=== PATIENT | male | born 1980 | race Caucasian/White ===

== ENCOUNTER 2022-02-02 09:25 | Emergency (ER) | payer SELFPAY ==
[~2022-02-02] VITALS: Ht 175 cm; Wt 95.0 kg
--- NOTE | 2022-02-02 09:43 | ED General ---
General Stated Complaint: LT LEG DVT History of Present Illness Date Seen by Provider: Feb 02, 2022 Time Seen by Provider: 09:43 Initial Comments 41-year-old male sent in by [facility] because he has a DVT. Patient has a known history of factor V Leiden and history of DVTs. Patient reports that he has been on Coumadin for 10 years. However about 3 weeks ago he was out of Coumadin for about a week. Few days ago he noticed some increasing pain in his left upper leg. They presented to [facility]. They ordered a ultrasound that was done this morning. Ultrasound this morning shows occlusive left thrombus in the external iliac, common femoral vein and femoral vein. Patient reports that when they checked his INR on Sunday it was 1.9. Patient is told nurse that he was sent in to the ER to get an IVC filter. Patient denies any shortness of breath. Allergies and Home Medications Allergies Coded Allergies: No Allergy Information Available (Unverified , 02/02/22) Patient Home Medication List Home Medication List Reviewed: Yes Enoxaparin Sodium (Lovenox) 100 Mg/Ml Syringe, 100 MG SQ BID Prescribed by: GALLO RAI on 02/02/22 1354 Tramadol HCl (Tramadol HCl) 50 Mg Tablet, 50 MG PO Q8H PRN for PAIN Prescribed by: GALLO RAI on 02/02/22 1411 Review of Systems Review of Systems Constitutional: no symptoms reported EENTM: no symptoms reported Respiratory: no symptoms reported Cardiovascular: no symptoms reported Gastrointestinal: no symptoms reported Genitourinary: no symptoms reported Musculoskeletal: see HPI Skin: no symptoms reported Psychiatric/Neurological: No Symptoms Reported Hematologic/Lymphatic: No Symptoms Reported Immunological/Allergic: no symptoms reported Physical Exam Vital Signs Vital Signs - First Documented 02/02/22 02/02/22 09:47 14:48 Temp 36.5 Pulse 81 Resp 16 B/P (MAP) 135/90 (105) Pulse Ox 99 O2 Delivery Room Air Capillary Refill : Height, Weight, BMI Height: '" Weight: lbs. oz. 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 Norm as Tested Skin: Normal Color, Warm/Dry Progress/Results/Core Measures Suspected Sepsis SIRS Temperature: Pulse: Respiratory Rate: Laboratory Tests 02/02/22 09:56: White Blood Count 12.1H Blood Pressure / Mean: Laboratory Tests 02/02/22 09:56: Creatinine 1.19, INR Comment 2.9H, Platelet Count 467H Results/Orders Lab Results Laboratory Tests Test 02/02/22 09:56 Range/Units White Blood Count 12.1 H 4.3-11.0 10^3/uL Red Blood Count 4.63 4.30-5.52 10^6/uL Hemoglobin 14.1 13.3-17.7 g/dL Hematocrit 42 40-54 % Mean Corpuscular Volume 91 80-99 fL Mean Corpuscular Hemoglobin 31 25-34 pg Mean Corpuscular Hemoglobin Concent 33 32-36 g/dL Red Cell Distribution Width 13.8 10.0-14.5 % Platelet Count 467 H 130-400 10^3/uL Mean Platelet Volume 9.5 9.0-12.2 fL Prothrombin Time 30.5 H 12.2-14.7 SEC INR Comment 2.9 H 0.8-1.4 Activated Partial Thromboplast Time 61 H 24-35 SEC Sodium Level 138 135-145 MMOL/L Potassium Level 4.1 3.6-5.0 MMOL/L Chloride Level 99 98-107 MMOL/L Carbon Dioxide Level 23 21-32 MMOL/L Anion Gap 16 H 5-14 MMOL/L Blood Urea Nitrogen 22 H 7-18 MG/DL Creatinine 1.19 0.60-1.30 MG/DL Estimat Glomerular Filtration Rate 79 BUN/Creatinine Ratio 18 Glucose Level 110 H 70-105 MG/DL Calcium Level 9.6 8.5-10.1 MG/DL My Orders Orders - GALLO RAI DO Basic Metabolic Panel (02/02/22 09:48) Cbc No Diff (02/02/22 09:48) Protime With Inr (02/02/22 09:48) Partial Thromboplastin Time (02/02/22 09:48) Ct Abdomen/Pelvis W (02/02/22 12:07) Iohexol Injection (Omnipaque 350 Mg/Ml 1 (02/02/22 12:15) Received Contrast (Hold Metformin- Contr (02/02/22 12:15) Ns (Ivpb) (Sodium Chloride 0.9% Ivpb Bag (02/02/22 12:15) Sodium Chloride Flush (Catheter Flush Sy (02/02/22 12:15) Enoxaparin Injection (Lovenox Injection) (02/02/22 14:00) Medications Given in ED Current Medications Medications Dose Ordered Sig/Keerthi Route Start Time Stop Time Status Last Admin Dose Admin Enoxaparin Sodium 90 mg ONCE ONCE SC 02/02/22 14:00 02/02/22 14:01 DC 02/02/22 14:07 90 MG Iohexol 100 ml ONCE ONCE IV 02/02/22 12:15 02/02/22 12:17 DC 02/02/22 12:58 80 ML Sodium Chloride 10 ml NEEDED PRN IV 02/02/22 12:15 02/02/22 14:48 DC 02/02/22 12:58 10 ML Sodium Chloride 100 ml ONCE ONCE IV 02/02/22 12:15 02/02/22 12:17 DC 02/02/22 12:57 80 ML Vital Signs/I&O 02/02/22 02/02/22 09:47 14:48 Temp 36.5 Pulse 81 75 Resp 16 16 B/P (MAP) 135/90 (105) 126/88 Pulse Ox 99 99 O2 Delivery Room Air Room Air Capillary Refill : Progress Note : Progress Note I reviewed DVT results. Discussed with Dr. Thomas, vascular surgery at [facility]. They asked us to obtain a delayed venous phase CT abdomen pelvis to mid thigh. They will then review it and set up an outpatient thrombectomy with patient. Patient has good distal pulses. No swelling of the leg. They also requested that we have him stop his Coumadin and start him on Lovenox twice daily weight-based. vascular dixie will contact them directly to set up an appointment. Patient was stable and discharged home. Patient is in agreement with plan and voices understanding. Diagnostic Imaging Diagonstic Imaging: CT Plain Films/CT/US/NM/MRI: abdomen, pelvis Comments Date of Exam:02/02/22 CT ABDOMEN/PELVIS W PROCEDURE: CT abdomen and pelvis with contrast. TECHNIQUE: Multiple contiguous axial images were obtained through the abdomen and pelvis after administration of intravenous contrast. Auto Exposure Controls were utilized during the CT exam to meet ALARA standards for radiation dose reduction. All CT scans use one or more of the following dose optimizing techniques: automated exposure control, MA and/or KvP adjustment based on patient size and exam type or iterative reconstruction. INDICATION: Left iliac DVT. FINDINGS: The lung bases are clear. Liver and gallbladder are unremarkable. No biliary ductal dilatation is seen. Pancreas and spleen are unremarkable. No adrenal mass is detected. There is a solitary right kidney. There is a filter in the inferior vena cava. Aorta is nonaneurysmal. Bowel loops are normal in caliber without evidence of obstruction. There is some bladder wall thickening with pericystic inflammatory changes noted. The left external and internal iliac veins appear to be dilated and contain low density, consistent with thrombus. There is some significant inflammatory stranding surrounding the left external iliac vein as well as the left common femoral vein. There appears to be some thrombus within the upper portion of the left superficial femoral vein. No free fluid or fluid collection is seen. Prostate is unremarkable. IMPRESSION: 1. There appears to be thrombus within the left external and internal iliac veins as well as left common femoral vein and upper portion of the left superficial femoral vein. There may be some thrombus in the left common femoral vein as well. Patient does have an IVC filter in place. 2. Bladder wall thickening with pericystic inflammation, perhaps owing to cystitis. Reviewed: Reviewed/Discussed Departure Impression Primary Impression: Dvt femoral (deep venous thrombosis) Qualified Codes: I82.412 - Acute embolism and thrombosis of left femoral vein Disposition: HOME, SELF-CARE Condition: Stable Departure-Patient Inst. Referrals: MALACHI ZHANG MD (PCP) Primary Care Physician Patient Instructions: Deep Vein Thrombosis (DVT) ED Add. Discharge Instructions: Please stop your Coumadin and start Lovenox twice daily as prescribed. You will be contacted by vascular clinic, Dr. Thomas to help arrange for an outpatient evaluation and further treatment. Return to the ER as needed. Scripts Tramadol HCl (Tramadol HCl) 50 Mg Tablet 50 MG PO Q8H PRN for PAIN for 3 Days, #10 TAB 0 Refills Prov: GALLO RAI DO 02/02/22 Enoxaparin Sodium (Lovenox) 100 Mg/Ml Syringe 100 MG SQ BID for 14 Days, #28 EA Prov: GALLO RAI DO 02/02/22 GALLO RAI DO Feb 02, 2022 09:43
[2022-02-02 10:23] LABS: HEMATOCRIT 42 % (40-54); HEMOGLOBIN 14.1 g/dL (13.3-17.7); MEAN CORPUSCULAR HEMOGLOBIN 31 pg (25-34); MEAN CORPUSCULAR HGB CONC 33 g/dL (32-36); MEAN CORPUSCULAR VOLUME 91 fL (80-99); MEAN PLATELET VOLUME 9.5 fL (9.0-12.2); PLATELET COUNT 467 10^3/uL (130-400); WHITE BLOOD COUNT 12.1 10^3/uL (4.3-11.0)
[2022-02-02 10:44] LABS: INR 2.9 (0.8-1.4); PROTHROMBIN TIME PATIENT 30.5 SEC (12.2-14.7)
[2022-02-02 10:48] LABS: CALCIUM 9.6 MG/DL (8.5-10.1); CREATININE SERUM 1.19 MG/DL (0.60-1.30); POTASSIUM 4.1 MMOL/L (3.6-5.0)
[2022-02-02] MEDS ORDERED: HOLD METFORMIN - RECEIVED CONTRAST 20 ML VIAL IV SCH (12:15)
[2022-02-02] MEDS ORDERED: NS 100 ML (IVPB) BAG IV ONE (12:15)
[2022-02-02] MEDS ORDERED: IOHEXOL 350 MG/ML 100 ML (OMNIPAQUE 350) VIAL IV ONE (12:15)
[2022-02-02] MEDS ORDERED: CATHETER FLUSH 10 ML SYR IV PRN (12:15)
--- NOTE | 2022-02-02 13:24 | Diagnostic Imaging Report ---
PROCEDURE: CT abdomen and pelvis with contrast. TECHNIQUE: Multiple contiguous axial images were obtained through the abdomen and pelvis after administration of intravenous contrast. Auto Exposure Controls were utilized during the CT exam to meet ALARA standards for radiation dose reduction. All CT scans use one or more of the following dose optimizing techniques: automated exposure control, MA and/or KvP adjustment based on patient size and exam type or iterative reconstruction. INDICATION: Left iliac DVT. FINDINGS: The lung bases are clear. Liver and gallbladder are unremarkable. No biliary ductal dilatation is seen. Pancreas and spleen are unremarkable. No adrenal mass is detected. There is a solitary right kidney. There is a filter in the inferior vena cava. Aorta is nonaneurysmal. Bowel loops are normal in caliber without evidence of obstruction. There is some bladder wall thickening with pericystic inflammatory changes noted. The left external and internal iliac veins appear to be dilated and contain low density, consistent with thrombus. There is some significant inflammatory stranding surrounding the left external iliac vein as well as the left common femoral vein. There appears to be some thrombus within the upper portion of the left superficial femoral vein. No free fluid or fluid collection is seen. Prostate is unremarkable. IMPRESSION: 1. There appears to be thrombus within the left external and internal iliac veins as well as left common femoral vein and upper portion of the left superficial femoral vein. There may be some thrombus in the left common femoral vein as well. Patient does have an IVC filter in place. 2. Bladder wall thickening with pericystic inflammation, perhaps owing to cystitis. Dictated by: Dictated on workstation # [id number]
[2022-02-02] MEDS ORDERED: ENOX100D9 SQ (13:54)
[2022-02-02] MEDS ORDERED: ENOXAPARIN 100 MG/1 ML (LOVENOX) SYR SC ONE (14:00)
[2022-02-02] MEDS ORDERED: TRM50T PO (14:11)
[2022-02-02 14:48] VITALS: BP 126/88
== END 2022-02-02 14:48 | disposition home or self-care (01) ==
LOC: EDUNIT# 09:25 → ER FS 09:27
DX: I82.412 Acute embolism and thrombosis of left femoral vein (principal); Z91.14 Patient's other noncompliance with medication regimen
CPT/HCPCS: 36415; 74177; 80048; 85027; 85610; 85730; 96372